=== PATIENT | male | born 1980 | race Caucasian/White ===

== ENCOUNTER 2020-10-18 09:53 | Emergency (ER) | payer OTHER, SELFPAY ==
--- NOTE | ~2020-10-18 | CT_ITS ---
EXAMINATION: CTA chest PE protocol DATE: 10/18/2020 12:16 INDICATION: Cough TECHNIQUE: Computed tomography angiography (CTA) of the chest was performed with 100 mL Omnipaque-350 intravenous contrast timed to evaluate the pulmonary arteries. Coronal maximum intensity projection 3D-reconstructions were created by the technologist. The dose-length product (DLP) was 289.08 mGy-cm. Automated exposure control and iterative reconstruction technique were employed. COMPARISON: 03/29/2009 FINDINGS: The pulmonary arteries are well-opacified. No pulmonary embolism is identified. There is mo derate emphysema. There are scattered areas of scarring and atelectasis within the lungs. The lungs a re free of focal airspace opacities. There is no pleural effusion or pneumothorax. No pathologically enlarged thoracic lymph nodes are identified. The heart size is normal. There is a 4.5 cm low-attenua tion mass of the right adrenal gland, consistent with an adenoma or myelolipoma. IMPRESSION: 1. No pulmonary embolism or acute cardiopulmonary abnormality. Reviewed, dictated and finalized at location B.
--- NOTE | ~2020-10-18 | US_ITS ---
EXAMINATION: US venous doppler [facility] DATE: 10/18/2020 11:36 INDICATION: Left lower limb pain TECHNIQUE: Camarena scale images without and with compression and Doppler images of the left lower extrem ity veins were obtained. COMPARISON: None FINDINGS: The left common femoral vein, profunda femoral vein, femoral vein, popliteal vein, peroneal trunk, posterior tibial veins, and greater saphenous vein are patent. There is a patent varicose vei n in the area of COVID concern in the left lower extremity. IMPRESSION: 1. Patent left lower extremity veins. No evidence of deep venous thrombosis. 2. Patent varicose vein of the left lower extremity in the area of clinical concern. Reviewed, dictated and finalized at location B. IMPRESSION: 1. Patent left lower extremity veins. No evidence of deep venous thrombosis. 2. Patent varicose vein of the left lower extremity in the area of clinical con cern.
[2020-10-18 10:51] LABS: Basophils Absolute Auto 0.03 K/mm3 (0.00-0.10); Basophils Percent Auto 0.5 % (0.0-1.0); Eosinophils Absolute Auto 0.04 K/mm3 (0.02-0.50); Eosinophils Percent Auto 0.6 % (1.0-6.0); Hematocrit 47.9 % (40.0-54.0); Hemoglobin 16.7 g/dL (14.0-18.0); Immature Granulocyte Absolute 0.04 K/mm3 (0.00-0.00); Immature Granulocyte Percent A 0.6 % (0.0-0.0); Lymphocytes Absolute Auto 1.59 K/mm3 (1.10-4.50); Lymphocytes Percent Auto 24.7 % (18.0-42.0); Mean Corpuscular HGB Conc 34.9 g/dL (32.0-36.0); Mean Corpuscular Hemoglobin 33.1 pg (27.0-31.0); Mean Platelet Volume 10.2 fl (8.7-11.0); Monocytes Absolute Auto 0.58 K/mm3 (0.10-0.90); Neutrophils Absolute Auto 4.2 K/mm3 (1.7-7.2); Neutrophils Percent Auto 64.6 % (50.0-70.0); Platelet Count Result 193 K/mm3 (150-420); Red Blood Count 5.04 M/mm3 (4.70-6.10); Red Cell Distribution Width 12.7 % (11.6-14.4); White Blood Count 6.5 K/mm3 (4.8-10.8)
[2020-10-18 11:04] LABS: D Dimer 0.19 mg/L (0.19-0.50); Partial Thromboplastin Time 29.1 SEC (23.90-30.70); Prothrombin Time 10.9 Seconds (9.50-12.10)
[2020-10-18 11:10] VITALS: BP 145/103; PULSE 66; RESP 17; TEMP 36.8; O2SAT 99
[2020-10-18 11:43] VITALS: BP 135/96
[2020-10-18 11:47] LABS: Alanine Aminotransferase 31 U/L (16-63); Albumin Level 4.3 g/dL (3.4-5.0); Alkaline Phosphatase 81 U/L (46-116); Anion Gap 12 mmol/L (8-16); Aspartate Amino Transferase 23 U/L (15-37); Bilirubin,Total 1.3 mg/dL (0.00-1.00); Blood Urea Nitrogen 8 mg/dL (7-18); Calcium 8.7 mg/dL (8.5-10.1); Carbon Dioxide 26 mmol/L (21-32); Chloride 105 mmol/L (98-108); Estimated Glomerular Filt Rate > 60; Glucose 94 mg/dL (70-99); Osmolality Calculated 294 mOsm/kg (285-295); Potassium 4.2 mmol/L (3.5-5.1); Sodium 143 mmol/L (136-145); Total Protein 7.6 g/dL (6.4-8.2)
[2020-10-18 13:10] VITALS: BP 122/90; PULSE 63; RESP 17; O2SAT 95
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
== END 2020-10-18 13:10 | disposition home or self-care (01) ==
PROVIDERS: Emergency Provider Emergency Medicine
DX: I83.813 Varicose veins of bilateral lower extremities with pain (principal)
CPT/HCPCS: 36415; 71275; 80053; 85025; 85380; 85610; 85730; 93971; 99282; 99284; Q9967

== ENCOUNTER 2020-10-24 07:58 | Emergency (ER) | payer OTHER, SELFPAY ==
[2020-10-24 08:00] VITALS: BP 147/98; PULSE 79; RESP 16; TEMP 37.2; O2SAT 100
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
[2020-10-24] MEDS: diphenhydrAMINE HCl INJ 50 MG/ML VIAL IM (08:28)
[2020-10-24] MEDS: predniSONE 40 MG, predniSONE 10 MG 50 MG PO (08:29)
[2020-10-24] MEDS: FAMOTIDINE 20 MG TABLET PO (08:29)
[2020-10-24 08:56] VITALS: BP 147/98; PULSE 79; RESP 14; TEMP 37.2; O2SAT 99
== END 2020-10-24 08:59 | disposition home or self-care (01) ==
PROVIDERS: Emergency Provider Family Medicine; PCP Family Medicine
DX: L50.9 Urticaria, unspecified (principal)
CPT/HCPCS: 96372; 99283; A9270; J1200; J7512

== ENCOUNTER 2020-11-29 11:29 | Emergency (ER) | payer OTHER, SELFPAY ==
[2020-11-29 11:29] VITALS: BP 128/82; PULSE 76; RESP 16; TEMP 36.6; O2SAT 100
--- NOTE | 2020-11-29 11:34 | ECG_ITS ---
Measurements Intervals [place] Rate: 73 P: 64 MA: 115 QRS: 77 QRSD: 110 T: 87 QT: 411 QTc: 454 Interpretive Statements SINUS RHYTHM WITH SHORT MA INTERVAL DELAYED PRECORDIAL R/S TRANSITION T WAVE ABNORMALITY IN ANTERIOR LEADS- CONSIDER ISCHEMIA BASELINE ARTIFACT- I, II, AVR, AVL, AVF, V1-V6 ABNORMAL ECG Electronically Signed On 11-29-2020 12:30:24 CDT by Emanuel Castellon D.O.
[2020-11-29 12:02] LABS: Basophils Absolute Auto 0.06 K/mm3 (0.00-0.10); Basophils Percent Auto 0.7 % (0.0-1.0); Eosinophils Absolute Auto 0.06 K/mm3 (0.02-0.50); Eosinophils Percent Auto 0.7 % (1.0-6.0); Hematocrit 49.2 % (40.0-54.0); Hemoglobin 16.9 g/dL (14.0-18.0); Immature Granulocyte Absolute 0.09 K/mm3 (0.00-0.00); Lymphocytes Absolute Auto 3.81 K/mm3 (1.10-4.50); Lymphocytes Percent Auto 41.9 % (18.0-42.0); Mean Corpuscular HGB Conc 34.3 g/dL (32.0-36.0); Mean Corpuscular Hemoglobin 33.4 pg (27.0-31.0); Mean Corpuscular Volume 97.2 fL (78.0-102.0); Mean Platelet Volume 10.7 fl (8.7-11.0); Monocytes Absolute Auto 0.64 K/mm3 (0.10-0.90); Neutrophils Absolute Auto 4.4 K/mm3 (1.7-7.2); Neutrophils Percent Auto 48.7 % (50.0-70.0); Platelet Count Result 206 K/mm3 (150-420); Red Blood Count 5.06 M/mm3 (4.70-6.10); Red Cell Distribution Width 12.2 % (11.6-14.4); White Blood Count 9.1 K/mm3 (4.8-10.8)
[2020-11-29 12:13] LABS: Amphetamine Screen Urine Negative (Negative); Barbiturate Screen Urine Negative (Negative); Benzodiazepines Screen Urine Negative (Negative); Cannabinoid Screen Urine Negative (Negative); Cocaine Screen Urine Negative (Negative); Methadone Screen Urine Negative (Negative); Opiate Screen Urine Negative (Negative); Phencyclidine Screen Urine Negative (Negative)
[2020-11-29 12:26] LABS: Acetaminophen < 2 ug/mL (10-30); Alanine Aminotransferase 28 U/L (16-63); Albumin Level 4.4 g/dL (3.4-5.0); Alkaline Phosphatase 65 U/L (46-116); Anion Gap 10 mmol/L (8-16); Aspartate Amino Transferase 18 U/L (15-37); Bilirubin,Total 0.4 mg/dL (0.00-1.00); Blood Urea Nitrogen 8 mg/dL (7-18); Calcium 8.5 mg/dL (8.5-10.1); Carbon Dioxide 29 mmol/L (21-32); Chloride 108 mmol/L (98-108); Estimated Glomerular Filt Rate > 60; Glucose 88 mg/dL (70-99); Osmolality Calculated 301 mOsm/kg (285-295); Potassium 3.4 mmol/L (3.5-5.1); Salicylate 3.2 mg/dL (2.8-20.0); Sodium 147 mmol/L (136-145); Thyroid Stimulating Hormone 0.66 uIU/mL (0.36-3.74); Total Protein 7.6 g/dL (6.4-8.2)
[2020-11-29 12:27] LABS: Ethanol 264 mg/dL (0-6)
[2020-11-29] MEDS: NICOTINE (*PBKC) 21 MG PATCH 1 PATCH (12:38)
[2020-11-29] MEDS: LORazepam (*CRX) 0.5 MG TABLET ×2 (15:26)
[2020-11-29] MEDS: QUEtiapine FUMARATE 25 MG TABLET 50 MG PO (17:25)
[2020-11-29 20:15] LABS: Ethanol 10 mg/dL (0-6)
--- NOTE | 2020-11-29 20:40 | PC.NURSE ---
2220 SPOKE WITH WOODY FROM [facility] AND SHE WILL BE ON HER WAY
--- NOTE | 2020-11-29 20:44 | ED.PSYCH ---
HPI - Psych General Chief Complaint: Psychiatric Symptoms Stated Complaint: ambulance Source: patient and EMS Mode of arrival: EMS Limitations: no limitations History of Present Illness HPI Narrative: this is a 39-year-old patient that presents via EMS with suicidal ideation, patient has a history of alcohol abuse is a , and has a history of depression anxiety, has been drinking throughout the day and called the suicide hotline stating that he is suicidal and EMS brought the patient to our facility. Currently the patient is intoxicated, little belligerent and aggressive police were called on numerous occasions. Patient denies any fever chills no shortness of breath no chest pain. MD complaint: suicidal ideation and altered mental status Onset (ago): hour(s) Duration: constant Relieving factors: none Exacerbating factors: none Context: recent alcohol abuse Associated psychiatric symptoms: depression and suicidal ideation Related Data Home Medications Medication Instructions Recorded Confirmed quetiapine [Seroquel] 50 mg PO BID 11/29/20 11/29/20 Allergies Allergy/AdvReac Type Severity Reaction Status Date / Time duloxetine Allergy Unknown Unknown Verified 10/31/20 08:10 Penicillins Allergy Unknown Unknown Verified 10/31/20 08:10 Review of Systems Review of Systems: All systems reviewed & are unremarkable except as noted in HPI and below PMFSH Past Medical History Medical History Alcohol abuse Schizophrenia Tobacco abuse Family History Family History Mother Hypertension Father Patient's father is in good health Sibling Patient's sister is in good health Patient's brother is in good health Social History Social History Smoking packs per day: 1 Smoking cigarettes per day: 20.0 Years smoked: 20 Smoking pack-years: 20.00 Smoking status: Current every day smoker Tobacco type: cigarettes Alcohol intake: current Substance use type: crack/cocaine Exam Const: General: no acute distress Orientation/consciousness: patient oriented x3 Limitations: altered mental status HENMT: Head: normal to inspection Eyes: Conjunctivae: conjunctivae normal Pupils: Equal, round and reactive pupils present Neck: Neck: normal visual inspection, no lymphadenopathy and no meningeal signs Chest: Chest palpation & inspection: normal inspection of the chest Resp: Effort & Inspection: normal respiratory effort Auscultation: clear to auscultation bilaterally Cardio: Rate: regular rate Rhythm: regular rhythm GI: GI Palp: Yes Soft to palpation Percussion: Yes normal to percussion Skin: General skin exam: normal color Rashes: no rashes Neuro: General: patient oriented x3 and moves all extremities Extrem: General: normal to inspection and no pedal edema Psych: Appearance: disheveled Thought content: Yes Suicidality present Course Course Emergency Course: Patient medically cleared and current alcohol level is less than 10 and mental health has been called to come and evaluate the patient for suicidal ideation. mental health evaluation stable to be discharged with a safety contract and close follow-up. Vital Signs Vital signs: Vital Signs Temperature 36.6 C 11/29/20 11:29 Pulse Rate 76 11/29/20 11:29 Respiratory Rate 16 11/29/20 11:29 Blood Pressure 128/82 11/29/20 11:29 Pulse Oximetry 100 11/29/20 11:29 Temperature 36.6 C 11/29/20 11:29 Pulse Rate 76 11/29/20 11:29 Respiratory Rate 16 11/29/20 11:29 Blood Pressure 128/82 11/29/20 11:29 Pulse Oximetry 100 11/29/20 11:29 MDM - Psych Lab Data Result diagrams: 11/29/20 11:56 11/29/20 11:56 Labs: Lab Results 11/29/20 11/29/20 11/29/20 Range/Units 11:34 11:56 11:56 WBC 9.1 (4.8-10.8) K/mm3 R
[2020-11-29 22:29] VITALS: BP 132/93; PULSE 92; RESP 20; TEMP 36.8; O2SAT 98
== END 2020-11-29 22:39 | disposition home or self-care (01) ==
PROVIDERS: Emergency Provider Emergency Medicine; PCP Family Medicine
DX: R45.851 Suicidal ideations (principal)
CPT/HCPCS: 36415; 80053; 80307; 84443; 85025; 93005; 99283; A9270

== ENCOUNTER 2021-07-30 11:45 | Outpatient (CLI) | payer OTHER, SELFPAY ==
--- NOTE | ~2021-07-30 | XR_ITS ---
EXAMINATION: XR shoulder RT min 2V DATE: 07/30/2021 12:03 INDICATION: Right shoulder pain post fall 2 days prior TECHNIQUE: AP internally and externally rotated, AP oblique externally rotated and transscapular Y vi ews of the right shoulder were obtained. COMPARISON: None FINDINGS: Normal alignment. No fracture. Glenohumeral joint is normal. Acromioclavicular joint is normal. Soft tissues are unremarkable. The visualized portions of the right lung are clear. IMPRESSION: Negative right shoulder radiographs. Reviewed, dictated and finalized at location B.
== END 2021-07-30 11:46 | disposition home or self-care (01) ==
LOC: CHSIMG 11:48
PROVIDERS: PCP Family Medicine; Visit Provider Nurse Practitioner Family
DX: M25.511 Pain in right shoulder (principal)
CPT/HCPCS: 73030

== ENCOUNTER 2021-08-09 16:40 | Outpatient (RCR) | payer OTHER, SELFPAY ==
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
--- NOTE | 2021-12-24 08:07 | PCPTNOTE ---
mr. gomez has not been to therapy in over 3 months. he will be dc'd from skilled PT services.
== END 2021-08-09 23:59 | disposition home or self-care (01) ==
LOC: CHSPT 16:40
PROVIDERS: PCP Family Medicine; Visit Provider Nurse Practitioner Family
DX: M25.511 Pain in right shoulder (principal)
CPT/HCPCS: 97014; 97110; 97161; G0283

== ENCOUNTER 2022-09-03 11:26 | Emergency (ER) | payer OTHER, SELFPAY ==
[2022-09-03] VITALS (30 sets, daily range): BP systolic 112–156; BP diastolic 72–101; PULSE 70–90; RESP 18–20; TEMP 36.8–37.2; O2SAT 88–100
[2022-09-03] MEDS: OLANZapine 10 MG, WATER, STERILE FOR INJECTION 2.1 ML IM (11:30)
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
[2022-09-03 12:03] LABS: Appearance Urine Clear (Clear); Basophils Absolute Auto 0.05 K/mm3 (0.00-0.10); Bilirubin Urine Negative (Negative); Blood Urine Negative (Negative); Color Urine Light Yellow (Yellow); Eosinophils Absolute Auto 0.03 K/mm3 (0.02-0.50); Eosinophils Percent Auto 0.6 % (1.0-6.0); Glucose Urine UA Negative (Negative); Hematocrit 44.7 % (40.0-54.0); Hemoglobin 15.5 g/dL (14.0-18.0); Immature Granulocyte Absolute 0.02 K/mm3 (0.00-0.00); Immature Granulocyte Percent A 0.4 % (0.0-0.0); Ketones Urine Negative (Negative); Leukocyte Esterase Ur Negative (Negative); Lymphocytes Absolute Auto 2.35 K/mm3 (1.10-4.50); Mean Corpuscular HGB Conc 34.7 g/dL (32.0-36.0); Mean Corpuscular Hemoglobin 32.4 pg (27.0-31.0); Mean Corpuscular Volume 93.5 fL (78.0-102.0); Mean Platelet Volume 10.2 fl (8.7-11.0); Monocytes Absolute Auto 0.34 K/mm3 (0.10-0.90); Monocytes Percent Auto 6.7 % (2.0-11.0); Neutrophils Absolute Auto 2.3 K/mm3 (1.7-7.2); Neutrophils Percent Auto 45.3 % (50.0-70.0); Nitrate Urine Negative (Negative); Platelet Count Result 207 K/mm3 (150-420); Protein Urine Negative (Negative); Red Blood Count 4.78 M/mm3 (4.70-6.10); Specific Grav Ur <= 1.005 (1.010-1.020); Urobilinogen Urine 0.2 mg/dL (0.2-1.0); White Blood Count 5.1 K/mm3 (4.8-10.8); pH Urine 6.5 (5.0-8.0)
[2022-09-03] MEDS: LORazepam INJ (*CRX) 2 MG/ML VIAL IM (12:04)
[2022-09-03 12:05] LABS: Add Urine Microscopic? NO
[2022-09-03 12:26] LABS: Amphetamine Screen Urine Negative (Negative); Barbiturate Screen Urine Negative (Negative); Benzodiazepines Screen Urine Negative (Negative); Cannabinoid Screen Urine Negative (Negative); Cocaine Screen Urine Negative (Negative); Methadone Screen Urine Negative (Negative); Opiate Screen Urine Negative (Negative); Phencyclidine Screen Urine Negative (Negative)
[2022-09-03 12:26] LABS: Alanine Aminotransferase 31 U/L (16-63); Albumin Level 4.2 g/dL (3.4-5.0); Alkaline Phosphatase 106 U/L (46-116); Anion Gap 10 mmol/L (8-16); Aspartate Amino Transferase 32 U/L (15-37); Bilirubin,Total 0.5 mg/dL (0.00-1.00); Blood Urea Nitrogen 10 mg/dL (7-18); Calcium 8.4 mg/dL (8.5-10.1); Carbon Dioxide 29 mmol/L (21-32); Chloride 108 mmol/L (98-108); Estimated CRCL calculation 87 ml/min; Estimated Glomerular Filt Rate > 60; Glucose 100 mg/dL (70-99); Osmolality Calculated 303 mOsm/kg (285-295); Potassium 3.9 mmol/L (3.5-5.1); Salicylate 3.1 mg/dL (2.8-20.0); Sodium 147 mmol/L (136-145); Thyroid Stimulating Hormone 0.68 uIU/mL (0.36-3.74); Total Protein 7.5 g/dL (6.4-8.2)
[2022-09-03 12:29] LABS: Acetaminophen < 2 ug/mL (10-30)
[2022-09-03 12:39] LABS: Ethanol 265 mg/dL (0-6)
--- NOTE | 2022-09-03 12:52 | ECG_ITS ---
Measurements Intervals [place] Rate: 75 P: 79 [place]: 136 QRS: 74 QRSD: 105 T: 72 QT: 398 QTc: 446 Interpretive Statements SINUS RHYTHM NONSPECIFIC ST ABNORMALITY ABNORMAL ECG COMPARED TO ECG 11/29/2020 12:05:34 NO SIGNIFICANT CHANGES Electronically Signed On 09-03-2022 14:41:50 CDT by Ever Johnson M.D.
--- NOTE | 2022-09-03 13:16 | PC.NURSE ---
1144 urine to lab 1210 cuffs removed per machine rug cleaner, pt sleeping 1215 pt moved from room 5 to room 1 for monitoring and close observation. sitter outside room. e learning coordinator deputies leaving facility 1255 pt coughing, noted sapo2 88%. oxygen 2LNC applied. 1300 pt back to sleep , vitals stable. sapo2 99 2LNC.
--- NOTE | 2022-09-03 13:21 | PC.NURSE ---
Involutary admission paperwork filled out per [facility] Deputy Sebastian.
--- NOTE | 2022-09-03 15:26 | PC.NURSE ---
1400 pt sleeping 1500 pt sleeping, repositions self. sitter remains outside of room.
[2022-09-03 15:59] LABS: Ethanol 200 mg/dL (0-6)
--- NOTE | 2022-09-03 16:31 | PC.NURSE ---
1600 pt sleeping 1630 pt sleeping
--- NOTE | 2022-09-03 18:44 | PC.NURSE ---
food tray given to pt as requested.
--- NOTE | 2022-09-03 19:16 | PC.NURSE ---
report to grady rn. awaiting transport to floor for admission
--- NOTE | 2022-09-03 19:17 | PC.NURSE ---
pt requesting anxiety medication. explained need for blood alcohol redraw before psych eval can be completed. pt voiced understanding. yelling at staff and yelling out in room. report given to DAGO concepcion
[2022-09-03 19:25] LABS: Ethanol 108 mg/dL (0-6)
[2022-09-03 19:53] LABS: SARS-CoV-2 RNA PCR Negative (Negative)
--- NOTE | 2022-09-03 21:01 | PC.NURSE ---
pt currently denies suicidal or homicidal ideations at this time. Pt denies visual and audible hallucinations at this time. pt become visibility agitated with this staff member was perform a psychiatric assessment.
[2022-09-03 22:51] LABS: Ethanol 4 mg/dL (0-6)
--- NOTE | 2022-09-04 01:01 | PC.NURSE ---
[facility] automotive sales representative Keron in ER speaking with pt at this time.
--- NOTE | 2022-09-04 01:15 | PC.NURSE ---
pt belongs returned to pt.
--- NOTE | 2022-09-04 01:39 | PC.NURSE ---
per Jimenez Cabrales and Md Wahl, pt is going to be discharged home.
[2022-09-04 01:50] VITALS: BP 136/86; PULSE 66; RESP 17; TEMP 37.3; O2SAT 93
== END 2022-09-04 02:20 | disposition home or self-care (01) ==
PROVIDERS: Emergency Medicine; Emergency Provider Internal Medicine Critical Care Medicine; PCP Family Medicine
DX: R45.851 Suicidal ideations (principal); F10.129 Alcohol abuse with intoxication, unspecified; Y90.9 Presence of alcohol in blood, level not specified; F17.210 Nicotine dependence, cigarettes, uncomplicated; Z20.822 Contact with and (suspected) exposure to COVID-19
CPT/HCPCS: 36415; 80053; 80307; 81003; 84443; 85025; 87635; 93005; 96372; 99284; J2060

== ENCOUNTER 2023-09-28 19:22 | Emergency (ER) | payer OTHER, SELFPAY ==
[2023-09-28 19:22] VITALS: BP 146/90; PULSE 103; RESP 16; TEMP 36.8; O2SAT 98
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
== END 2023-09-28 20:22 | disposition home or self-care (01) ==
LOC: CHSED 20:10
PROVIDERS: Emergency Provider Family Medicine; PCP Family Medicine
DX: S91.132A Puncture wound without foreign body of left great toe without damage to nail, initial encounter (principal); F17.210 Nicotine dependence, cigarettes, uncomplicated; W25.XXXA Contact with sharp glass, initial encounter
CPT/HCPCS: 99282

== ENCOUNTER 2023-09-30 12:01 | Outpatient (NON) | payer OTHER, SELFPAY | END 2023-09-30 12:02 | disposition home or self-care (01) | LOC: CHSLAB 12:04 | PROVIDERS: Visit Provider Nurse Practitioner Family | DX: L02.612 Cutaneous abscess of left foot (principal) | CPT/HCPCS: 87070; 87075; 87147; 87181; 87205 ==

== ENCOUNTER 2023-11-16 14:26 | Emergency (ER) | payer OTHER, SELFPAY ==
--- NOTE | ~2023-11-16 | CT_ITS ---
EXAMINATION: CT UE LT w con DATE: 11/16/2023 16:17 INDICATION: Lymphangitis. TECHNIQUE: Computed tomography (CT) of the left upper limb was performed with 100 mL Omnipaque 350 in travenous contrast. Automated exposure control and iterative reconstruction technique were employed. The dose-length product was 1365.31 mGy-cm. COMPARISON: None FINDINGS: Bone alignment is normal. No fracture. There is mild osteoarthritis of first carpometacarpa l joint and first metacarpophalangeal joint. There is a benign bone island in distal radius. There is mild elbow joint osteoarthritis. No elbow joint effusion. There is fat stranding of the hand, worst between the first and second metacarpals, consistent with edema versus inflammation. There is mild em bcutaneous edema in the forearm. The neurovascular bundles are unremarkable. IMPRESSION: 1. Edema versus inflammation of the hand, worst between the first and second metacarpals. No abscess. Reviewed, dictated and finalized at location A. IMPRESSION: 1. Edema versus inflammation of the hand, worst between the first and second me tacarpals. No abscess.
[2023-11-16 14:28] VITALS: BP 144/107; PULSE 89; RESP 20; TEMP 36.4; O2SAT 97
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
[2023-11-16 14:51] LABS: Basophils Absolute Auto 0.03 K/mm3 (0.00-0.10); Basophils Percent Auto 0.3 % (0.0-1.0); Eosinophils Absolute Auto 0.07 K/mm3 (0.02-0.50); Eosinophils Percent Auto 0.7 % (1.0-6.0); Hematocrit 45.3 % (40.0-54.0); Hemoglobin 16.1 g/dL (14.0-18.0); Immature Granulocyte Absolute 0.04 K/mm3 (0.00-0.00); Immature Granulocyte Percent A 0.4 % (0.0-0.0); Lymphocytes Absolute Auto 2.25 K/mm3 (1.10-4.50); Lymphocytes Percent Auto 21.9 % (18.0-42.0); Mean Corpuscular HGB Conc 35.5 g/dL (32-36); Mean Corpuscular Hemoglobin 33.9 pg (27.0-31.0); Mean Corpuscular Volume 95.4 fL (78.0-102.0); Mean Platelet Volume 10.4 fl (8.7-11.0); Monocytes Percent Auto 8.8 % (2.0-11.0); Neutrophils Absolute Auto 6.99 K/mm3 (1.70-7.20); Neutrophils Percent Auto 67.9 % (50.0-70.0); Platelet Count Result 197 K/mm3 (150-420); Red Blood Count 4.75 M/mm3 (4.70-6.10); Red Cell Distribution Width 11.6 % (11.6-14.4); White Blood Count 10.3 K/mm3 (4.8-10.8)
[2023-11-16] MEDS: SODIUM CHLORIDE 0.9% IV 1,000 ML 999 ML IV CONT (15:10)
--- NOTE | 2023-11-16 15:18 | PC.NURSE ---
Fungal specimen collected. Took to lab.
[2023-11-16] MEDS: HYDROcodone/acetaminophen (*CRX) 5-325 MG TABLET 1 TAB PO (15:28)
[2023-11-16 15:34] LABS: Lactic Acid Reflex 1.5 mmol/L (0.4-2.0)
[2023-11-16] MEDS: CEFEPIME 2 GM/NS 50 ML 2 GM/50 ML BAG IVPB (15:36)
--- NOTE | 2023-11-16 15:45 | PC.NURSE ---
Pt asking for something to eat. Dr said not at this time.
[2023-11-16 15:48] LABS: Alanine Aminotransferase 19 U/L (16-63); Albumin Level 3.7 g/dL (3.4-5.0); Alkaline Phosphatase 79 U/L (46-116); Anion Gap 8 mmol/L (4-12); Aspartate Amino Transferase 19 U/L (15-37); Bilirubin,Total 0.8 mg/dL (0.00-1.00); Blood Urea Nitrogen 7 mg/dL (7-18); CRP 1.6 mg/dL (0.0-0.9); Calcium 8.5 mg/dL (8.5-10.1); Carbon Dioxide 29 mmol/L (21-32); Chloride 100 mmol/L (98-108); Estimated CRCL calculation 87 ml/min; Estimated Glomerular Filt Rate > 60; Glucose 77 mg/dL (70-99); Osmolality Calculated 281 mOsm/kg (285-295); Potassium 3.8 mmol/L (3.5-5.1); Sodium 137 mmol/L (136-145); Total Protein 7.3 g/dL (6.4-8.2)
[2023-11-16] MEDS: VANCOMYCIN 1,250 MG/NS 250 ML 1,250 MG/250 ML BAG 166.67 MG IVPB (16:12)
--- NOTE | 2023-11-16 16:45 | PC.NURSE ---
Gave pt sandwich and coffee. Resting in stretcher.
[2023-11-16 17:44] VITALS: BP 141/106; PULSE 80; RESP 20; TEMP 36.5; O2SAT 96
--- NOTE | 2023-11-22 13:56 | PC.NURSE ---
Final blood culture report: No growth after 5 days, no further action or treatment needed at this time.
--- NOTE | 2023-12-16 12:17 | PC.NURSE ---
FINAL FUNGAL CULTURE RESULTS: NO FUNGAL GROWTH AT 4 WEEKS.
== END 2023-11-16 17:50 | disposition home or self-care (01) ==
PROVIDERS: Emergency Provider Family Medicine; PCP Family Medicine
DX: L03.114 Cellulitis of left upper limb (principal); F17.210 Nicotine dependence, cigarettes, uncomplicated
CPT/HCPCS: 36415; 73201; 80053; 83605; 85025; 86140; 87040; 87101; 96365; 96366; 96367; 99284; A9270; J0692; J3370; J7030; Q9967

== ENCOUNTER 2023-11-17 14:58 | Emergency (ER) | payer OTHER, SELFPAY ==
[2023-11-17 14:58] VITALS: BP 123/88; PULSE 110; RESP 24; TEMP 37.1; O2SAT 94
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
== END 2023-11-17 15:34 | disposition home or self-care (01) ==
PROVIDERS: Emergency Provider Emergency Medicine; PCP Family Medicine
DX: L03.114 Cellulitis of left upper limb (principal); J00 Acute nasopharyngitis [common cold]; F17.210 Nicotine dependence, cigarettes, uncomplicated
CPT/HCPCS: 99283